=== PATIENT | male | born 1940 | race Caucasian/White ===

== ENCOUNTER 2025-02-03 06:18 | Day surgery (SDC) | payer MEDICARE ==
[2025-02-03] VITALS (8 sets, daily range): BP systolic 100–127; BP diastolic 49–71; PULSE 46–54; RESP 14–17; O2SAT 93–97
[~2025-02-03] VITALS: Ht 190.5 cm; Wt 104.1 kg
--- NOTE | 2025-02-03 06:54 | ELECTROCARDIOGRAPH REPORT ---
[facility] Test Date: 2025-02-03 Test Time: 06:52:25 Pat Name: SALUD WILLSONFITT Department: [facility] Patient ID: [facility]-[id number] Room: Gender: M Snow Maker: JENNIFER : 1940 Requested By: KENNA GALEAS Order Number: [id number] Reading MD: Dr. ERON Fregoso Measurements Intervals [place] Rate: 51 P: 40 MD: 210 QRS: 0 QRSD: 96 T: -3 QT: 453 QTc: 418 Interpretive Statements Sinus rhythm Abnormal R-wave progression, early transition Electronically Signed On 02-03-2025 8:58:[address] ERON Fregoso Please click the below link to view image of tracing.
[2025-02-03] MEDS ORDERED: WARF1TAB83 PO (06:55)
[2025-02-03] MEDS ORDERED: APIX5TAB3 PO (06:55)
[2025-02-03] MEDS ORDERED: METO-395 PO (06:55)
[2025-02-03] MEDS ORDERED: WARF6TAB49 PO (06:55)
[2025-02-03 07:23] LABS: MEAN PLATELET VOLUME 6.9 FL (7.4-10.4); RED CELL DISTRIBUTION WIDTH 14.4 % (11.5-14.5)
[2025-02-03 07:31] LABS: CREATININE 0.89 MG/DL (0.60-1.10); TOTAL CARBON DIOXIDE 28.0 MMOL/L (24-32); eCRCL 76 ML/MIN; eGFR 82 ML/MIN
[2025-02-03 07:33] LABS: INR 1.0 INR
[2025-02-03] MEDS ORDERED: verapamil 2.5 mg/ml inj IV ONE (08:40)
[2025-02-03] MEDS ORDERED: LIDOcaine 1% (10mg/ml) 2ml vial ONE (08:40)
[2025-02-03] MEDS ORDERED: midazolam 1 mg/ML 2ml injection ONE (08:41)
[2025-02-03] MEDS ORDERED: heparin 1,000unit/ml 10ml vial 10 ML ONE (08:41)
[2025-02-03] MEDS ORDERED: iohexol 350 MG/ML 50ML vial IV ONE (08:41)
[2025-02-03] MEDS ORDERED: fentaNYL/PF 50MCG/1 ML 2ML syringe ONE (08:41)
[2025-02-03] MEDS ORDERED: nitroGLYCERIN 500mcg/5mL D5W 5 ML IV ONE (08:42)
[2025-02-03] MEDS: sodium bicarbonate 1meq/ml inj 150 ML in dextrose 5%-water 1,000 ML IV ONE (09:06)
[2025-02-03] MEDS ORDERED: HYDROcodone/acetaminophen 5mg/325mg tablet PO PRN (10:25)
[2025-02-03] MEDS ORDERED: OXAZEpam 15mg capsule PO PRN (10:25)
[2025-02-03] MEDS ORDERED: ondansetron/PF 4mg/2ml inj IV PRN (10:25)
[2025-02-03] MEDS ORDERED: HYDROcodone/acetaminophen 10/325mg tab PO PRN (10:25)
--- NOTE | 2025-02-03 10:35 | CARDIOLOGY REPORT ---
DATE OF SERVICE: 02/03/2025 DICTATING PHYSICIAN: KENNA GALEAS DO CARDIAC CATHETERIZATION REPORT REFERRING PHYSICIAN: Kimber Champion MD CLINICAL HISTORY: This 84-year-old man has a markedly positive family history for coronary disease with multiple first-generation family members succumbing to coronary artery disease. He has been experiencing chest discomfort somewhat suggestive of angina; however, a pharmacologic stress test did not demonstrate a perfusion defect. Nevertheless because of his markedly positive family history, a decision was made to proceed to left heart catheterization. PROCEDURES PERFORMED: * Left heart catheterization * Left ventriculography * Selective coronary arteriography. * 30 minutes conscious sedation supervision DESCRIPTION OF PROCEDURE: The patient was sedated with fentanyl and Versed. He was then prepared and draped in the usual manner. The right radial area was infiltrated with 1% lidocaine using a micropuncture set and a Seldinger technique. A 6-Nigerien sheath was placed in the radial artery. 200 mcg of nitroglycerin and 2.5 mg of verapamil were directly injected into the radial artery. Left heart catheterization and left ventriculography were performed using a 6-Nigerien pigtail catheter. Coronary arteriography was performed using a 6-Nigerien Kimny catheter. The radial sheath was removed and Vasc Band was applied. RESULTS: HEMODYNAMIC DATA: The left ventricular and diastolic pressure was 7 mmHg. There was no gradient across the aortic valve. LEFT VENTRICULOGRAM: The left ventriculogram was technically satisfactory. There was moderate calcification involving the left anterior descending coronary artery. The LVEF was estimated to be 70% to 75%. CORONARY ARTERIOGRAPHY: The coronary arteriograms were technically satisfactory. The patient had a right dominant system. RIGHT CORONARY ARTERY: The right coronary artery is a large main stem vessel. There was a prvwxr-qg-wungu posterior descending branch, a avcvsa-tr-tdetr first posterolateral and a small bifurcated second posterolateral. There were no obstructive lesions in the right coronary artery. LEFT MAIN CORONARY ARTERY: The left main was a large unobstructed vessel bifurcating into left anterior descending and circumflex coronary arteries. LEFT ANTERIOR DESCENDING CORONARY ARTERY: The LAD was a large transapical vessel. There is a very small caliber first diagonal taking its origin proximally. There was a cqywm-fp-weaeap-sized bifurcated second diagonal taking its origin from the mid LAD. A third tiny diagonal took its origin from the mid distal LAD. There were no obstructive lesions in the left anterior descending coronary artery. CIRCUMFLEX CORONARY ARTERY: The circumflex was a large main stem vessel. There was a large bifurcated first obtuse marginal branch and no other left ventricular branches more distally; however, there were 2 small caliber atrial branches. There were no obstructive lesions in the circumflex coronary artery. CONCLUSIONS: * No evidence for obstructive coronary artery disease. * Left ventricular function was normal to supernormal. The estimated left ventricular ejection fraction was 70% to 75%. RECOMMENDATIONS: Ongoing medical therapy. KENNA GALEAS DO TID: [id number] RECEIPT: [id number] MARGARITO/LJ
== END 2025-02-03 13:05 | disposition home or self-care (01) ==
LOC: SSTAY O 06:18
PROVIDERS: ATTEND Internal Medicine Cardiovascular Disease
DX: I25.110 Atherosclerotic heart disease of native coronary artery with unstable angina pectoris (principal); I71.21 Aneurysm of the ascending aorta, without rupture; I48.0 Paroxysmal atrial fibrillation; E78.5 Hyperlipidemia, unspecified; I47.10 Supraventricular tachycardia, unspecified; Z79.899 Other long term (current) drug therapy; Z98.890 Other specified postprocedural states
CPT/HCPCS: 36415; 80048; 83735; 85025; 85610; 93005; 93458; 99152; A6258; A6402; C1894; J1644; J2003; J2250; J3010; J3490; J7030; J7070; Q0163; Q9967; Z7610; 99153